=== PATIENT | female | born 1935 | race Caucasian/White ===

== ENCOUNTER → 2016-08-06 | Outpatient (CLI) | payer OTHER, MEDICARE | LOC: FIMAGING 10:03 | PROVIDERS: ATTEND Neurological Surgery | DX: M41.84 Other forms of scoliosis, thoracic region (principal); M41.86 Other forms of scoliosis, lumbar region; M48.02 Spinal stenosis, cervical region; E04.1 Nontoxic single thyroid nodule ==

== ENCOUNTER 2018-03-02 16:54 | Inpatient (IN) | payer OTHER, MEDICARE ==
--- NOTE | 2018-03-02 17:32 | EDPHY ---
H & P Stated Complaint: blood in stool Time Seen by Provider: 03/02/18 17:14 HPI/ROS: CHIEF COMPLAINT: "I have blood in my stool" HISTORY OF PRESENT ILLNESS: 82-year-old female prior history of GI bleed, no anticoagulant use, arrives via private vehicle with daughter complaining of bright red blood per rectum for the past 3 days. No abdominal pain. Seen earlier today at [facility] gastroenterology referred to the ER for evaluation. Patient prefers not to work with [facility] Gastroenterology prefers to work with GI of the [facility] where she has previously had evaluation. She denies: Abdominal pain, back pain, syncope, near syncope, lightheadedness Patient demonstrates to me photos of her bowel movement from this morning which show grossly bloody stool with clots. PRIMARY CARE PROVIDER: REVIEW OF SYSTEMS: 10 systems reviewed and negative with the exception of the elements mentioned in the history of present illness PAST MEDICAL & SURGICAL HISTORY: Previous GI bleed history SOCIAL HISTORY: Nonsmoker PHYSICAL EXAM (Prior to examination, patient consented to physical exam, hands were washed and my usual and customary physical exam procedures followed) 1) GENERAL: Well-developed, well-nourished, alert and oriented. Appears to be in no acute distress. 2) HEAD: Normocephalic, atraumatic 3) HEENT: Pupils equal, round, reactive to light bilaterally. Sclera anicteric. Nasopharynx, oropharynx, clear, no lesions. MoistDry mucous membranes. Ears bilaterally with normal tympanic membranes. 4) NECK: Full range of motion, no meningeal signs. 5) LUNGS: Clear auscultation bilaterally, no wheezes, no rhonchi, no retractions. 6) HEART: Regular rate and rhythm, no murmur, no heave, no gallop. 7) ABDOMEN: No guarding, no rebound, no focal tenderness, negative McBurney's, negative Hale's, negative Rovsing's, negative peritoneal sign, 8) MUSCULOSKELETAL: Moving all extremities, no focal areas of tenderness, no obvious trauma. No peripheral edema or discoloration. 9) BACK: No CVA tenderness, no midline vertebral tenderness, no fluctuance, no step-off, no obvious trauma, no visual or palpable abnormality. 10) SKIN: No rash, no petechiae. 11) RECTAL: Bright red blood on digital rectal examination DIFFERENTIAL DIAGNOSIS: In no particular including but limited to factitious GI bleed, upper GI bleed, lower GI bleed - Personal History Current Tetanus/Diphtheria Vaccine: Unsure Current Tetanus Diphtheria and Acellular Pertussis (TDAP): Unsure - Medical/Surgical History Hx Asthma: No Hx Chronic Respiratory Disease: No Hx Diabetes: No Hx Cardiac Disease: No Hx Renal Disease: No Hx Cirrhosis: No Hx Alcoholism: No Hx HIV/AIDS: No Hx Splenectomy or Spleen Trauma: No Other PMH: GI bleed, parathyroidectomy, colon resection - Social History Smoking Status: Never smoked Constitutional: Initial Vital Signs Temperature (C) 37 C 03/02/18 17:01 Heart Rate 79 03/02/18 17:01 Respiratory Rate 16 03/02/18 17:01 Blood Pressure 116/83 H 03/02/18 17:01 O2 Sat (%) 96 03/02/18 17:01 O2 Delivery Mode Room Air Allergies/Adverse Reactions: Sulfa (Sulfonamide Antibiotics) Allergy (Intermediate, Verified 03/02/18 17:01) Hives Home Medications: Medication Instructions Recorded LORazepam [Ativan] 0.5 mg PO HS 11/12/10 Medical Decision Making ED Course/Re-evaluation: The patient was re-evaluated with serial examinations in the case discussed with secondary supervising physician Dr. Angel Crowe in the E R. Patient was noted to have gross blood on rectal examination as well as in photos. It is unusual that the patient's stool occult blood study is negative. I have reviewed her old medical records and she has a prior admission for GI bleed without specific etiological source. I think that this is less than likely factitious GI bleeding. Does note that she ate beets a few days ago however I think that this is less than likely secondary to factitious GI bleed. I recommended admission. I consulted with Dr. Yousuf Dash who will admit patient. GI will be consulted. At this time will hold on imaging of abdomen as she has no subjective or objective abdominal complaints. 7:01 p.m.: Consultation Dr. Dave Gibbons will consult for GI - Data Points Laboratory Results: Laboratory Results 03/02/18 17:45 03/02/18 17:45 09/18/18 18 18 17:45 17:45 17:45 WBC 6.11 10^3/uL 10^3/uL (3.80-9.50) RBC 4.46 10^6/uL 10^6/uL (4.18-5.33) Hgb 12.8 g/dL g/dL (12.6-16.3) Hct 39.3 % % (38.0-47.0) MCV 88.1 fL fL (81.5-99.8) MCH 28.7 pg pg (27.9-34.1) MCHC 32.6 g/dL g/dL (32.4-36.7) RDW 14.3 % % (11.5-15.2) Plt Count 234 10^3/uL 10^3/uL (150-400) MPV 11.1 fL fL (8.7-11.7) Neut % (Auto) 62.6 % % (39.3-74.2) Lymph % (Auto) 28.0 % % (15.0-45.0) Cloud % (Auto) 8.7 % % (4.5-13.0) Eos % (Auto) 0.3 % L % (0.6-7.6) Baso % (Auto) 0.2 % L % (0.3-1.7) Nucleat RBC Rel Count 0.0 % % (0.0-0.2) Absolute Neuts (auto) 3.83 10^3/uL 10^3/uL (1.70-6.50) Absolute Lymphs (auto) 1.71 10^3/uL 10^3/uL (1.00-3.00) Absolute Monos (auto) 0.53 10^3/uL 10^3/uL (0.30-0.80) Absolute Eos (auto) 0.02 10^3/uL L 10^3/uL (0.03-0.40) Absolute Basos (auto) 0.01 10^3/uL L 10^3/uL (0.02-0.10) Absolute Nucleated RBC 0.00 10^3/uL 10^3/uL (0-0.01) Immature Gran % 0.2 % % (0.0-1.1) Immature Gran # 0.01 10^3/uL 10^3/uL (0.00-0.10) PT 13.4 SEC SEC (12.0-15.0) INR 1.00 (0.83-1.16) APTT 25.4 SEC SEC (23.0-38.0) Sodium 139 mEq/L mEq/L (135-145) Potassium 4.3 mEq/L mEq/L (3.3-5.0) Chloride 103 mEq/L mEq/L (97-110) Carbon Dioxide 27 mEq/l mEq/l (22-31) Anion Gap 9 mEq/L mEq/L (8-16) BUN 20 mg/dL mg/dL (7-23) Creatinine 0.7 mg/dL mg/dL (0.6-1.0) Estimated GFR > 60 Glucose 120 mg/dL H mg/dL (70-100) Calcium 9.6 mg/dL mg/dL (8.5-10.4) Stool Occult Bld Scrn 03/02/18 17:34 WBC RBC Hgb Hct MCV MCH MCHC RDW Plt Count MPV Neut % (Auto) Lymph % (Auto) Cloud % (Auto) Eos % (Auto) Baso % (Auto) Nucleat RBC Rel Count Absolute Neuts (auto) Absolute Lymphs (auto) Absolute Monos (auto) Absolute Eos (auto) Absolute Basos (auto) Absolute Nucleated RBC Immature Gran % Immature Gran # PT INR APTT Sodium Potassium Chloride Carbon Dioxide Anion Gap BUN Creatinine Estimated GFR Glucose Calcium Stool Occult Bld Scrn NEGATIVE (NEGATIVE) Medications Given: Sodium Chloride (Ns) 1,000 mls @ 100 mls/hr IV CONT SOUMYA Stop: 08/29/18 19:29 Last Admin: 03/02/18 20:38 Dose: 1,000 mls Pantoprazole Sodium (Protonix) 40 mg IVP Q12HRS SOUMYA Stop: 08/29/18 20:59 Last Admin: 03/02/18 20:33 Dose: 40 mg Discontinued Medications Polyethylene Glycol/Electrolytes (Gavilyte - G) 4,000 ml PO ONCE ONE Stop: 03/02/18 19:37 Last Admin: 03/02/18 20:33 Dose: 4,000 ml Departure - Departure Disposition: [facility] Inpatient Acute Clinical Impression: GI bleed Condition: Fair
[2018-03-02 17:58] LABS: PLATELET COUNT 234 10^3/uL (150-400)
[2018-03-02 18:04] LABS: PROTIME(PATIENT) 13.4 SEC (12.0-15.0)
[2018-03-02] MEDS ORDERED: ACETAMINOPHEN 325 MG TAB PO PRN (19:26)
[2018-03-02] MEDS ORDERED: ONDANSETRON DISINTEGRATING 4 MG TAB PO PRN (19:26)
[2018-03-02] MEDS ORDERED: ONDANSETRON 4 MG/2 ML VIAL IVP PRN (19:26)
[2018-03-02] MEDS ORDERED: NS 1,000 ML IV SCH (19:30)
[2018-03-02] MEDS ORDERED: LORazepam 0.5 MG TAB PO PRN (19:36)
[2018-03-02] MEDS ORDERED: PEG 3350/NA SULF,BICARB,CL/KCL (GAVILYTE-G) 4000 ML BTL PO ONE (19:36)
[2018-03-02] MEDS: PANTOPRAZOLE SODIUM 40 MG VIAL IVP SCH (20:33)
--- NOTE | 2018-03-02 20:34 | GHP ---
DATE OF ADMISSION: 03/02/2018 CHIEF COMPLAINT: Bright red blood per rectum. HISTORY OF PRESENT ILLNESS: This is an 82-year-old female, who presents with bright red blood per re ctum. This started about 2 days ago. She describes some brown stool, as well as some possible dark tarry stool. She has also had blood in the toilet. She has not had any hematemesis. She has no abd ominal pain. She has a history of a GI bleed for somewhat obscure reasons in the past. She tells me in the past she has had a diverticula which was clipped. 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 She had a tagged red blood cell study back in 2010 which was negative for any source. She follows up with of the [facility], her last colonoscopy was about 3 years ago where some polyps were removed. She has been told she does not need any additional screening colonoscopies by Dr. Hart. Bairon peoples is not taking any blood thinners. She is not taking any NSAIDs. She has no dizziness, lightheaded ness, chest pain, or shortness of breath. I have reviewed her colonoscopies from here. These were a ll done in 2010. As above, she had a small AVM in her jejunum, as well as a possible AVM versus blee ding diverticula in her colon. PAST MEDICAL/SURGICAL HISTORY: 1. GI bleeds, as above. 2. Osteoporosis. 3. Partial colectomy for a benign polyp. 4. Diverticulosis. MEDICATIONS: Please see medication reconciliation. ALLERGIES: Sulfa. FAMILY HISTORY: Reviewed and noncontributory. SOCIAL HISTORY: She occasionally drinks wine. She does not smoke. REVIEW OF SYSTEMS: A 10-point review of systems is conducted and is negative except per HPI. PHYSICAL EXAM: VITAL SIGNS: Blood pressure 116/83, heart rate 79, respiration rate 16, saturating 9 6% on room air. Temperature is 37. GENERAL: The patient is a pleasant female who is resting comfor tably, accompanied by her daughter. No acute distress. HEENT: Shows her to be normocephalic, atrau matic. CARDIOVASCULAR: Regular rate and rhythm. No murmurs, rubs, or gallops. PULMONARY: Lungs c lear to auscultation bilaterally. ABDOMEN: Soft, nontender, nondistended. SKIN: Shows no rash. G U: No Krishnan. NEUROLOGIC: Shows her to be alert and oriented x3. She is moving all extremities. P SYCHIATRIC: Exam shows normal mood and affect. LABORATORIES: Basic metabolic panel is normal. BUN is 20. Hemoglobin is 12.8, white count is 6.1. INR is 1.0. Her fecal occult blood is negative. DATA: 1. I reviewed her chart as above. 2. I discussed this with Kristin Urban. Will admit to med/surg. IMPRESSION AND PLAN: Suspected gastrointestinal bleed: Discussed with Dr. Gibbons. We will plan fo r an upper and lower endoscopy tomorrow. Will trend her hemoglobin. I have ordered a prep for a col onoscopy for tomorrow. She is hemodynamically stable and not anemic at this time. She does have a c omplicated history of GI bleeds in the past. She is followed by GI of the [facility]. /[id number]/MODL
[2018-03-03] MEDS: PANTOPRAZOLE SODIUM 40 MG VIAL IVP SCH ×2 (07:51→21:57)
[2018-03-03] MEDS ORDERED: LR 1,000 ML IV ONE (08:44)
--- NOTE | 2018-03-03 09:05 | PDANEPAE ---
ANE History of Present Illness EGD/colonoscopy ANE Past Medical History - Pulmonary History Hx Oxygen in Use at Home: No Hx Sleep Apnea: No Sleep Apnea Screening Result - Last Documented: Negative - Endocrine History Hx Diabetes: No - Chronic Pain History Chronic Pain: No ANE Review of Systems Review of Systems: - Exercise capacity Exercise capacity: >=4 METS ANE Patient History - Allergies Allergies/Adverse Reactions: Sulfa (Sulfonamide Antibiotics) Allergy (Intermediate, Verified 03/03/18 08:52) dizzy, nausea oxycodone [From OxyContin] Allergy (Verified 03/03/18 08:52) - Home Medications Home medications: home medication list seen and reviewed Home Medications: LORazepam [Ativan] 0.5 mg PO HS 11/12/10 [Last Taken 03/01/18] - NPO status NPO Status: no food or drink >8 hours NPO Since - Liquids (Date): 03/03/18 NPO Since - Liquids (Time): 02:00 (prep) NPO Since - Solids (Date): 03/03/18 NPO Since - Solids (Time): 00:00 - Anes Hx Anes Hx: no prior problems - Smoking Hx Smoking Status: Never smoked - Alcohol Use Alcohol Use: None - Family Anes Hx Family Anes Hx: none ANE Labs/Vital Signs - Labs Result Diagrams: 03/03/18 07:43 03/03/18 07:43 - Vital Signs Blood Pressure: 122/64 Heart Rate: 78 Respiratory Rate: 18 O2 Sat (%): 91 Height: 152.4 cm Weight: 45.5 kg ANE Physical Exam - Airway Neck exam: FROM Mallampati Score: Class 2 Mouth exam: normal dental/mouth exam - Pulmonary Pulmonary: no respiratory distress - Cardiovascular Cardiovascular: regular rate and rhythym - ASA Status ASA Status: II ANE Anesthesia Plan Anesthesia Plan: GA with mask Total IV Anesthesia: Yes
[2018-03-03] MEDS ORDERED: PROPOFOL/EMULSION 500 MG/50 ML BOTTLE IV ONE (09:17)
[2018-03-03] MEDS ORDERED: LIDOCAINE 2% 100 MG/5 ML SYR ONE (09:18)
[2018-03-03] MEDS ORDERED: ONDANSETRON 4 MG/2 ML VIAL IVP PRN (09:32)
[2018-03-03] MEDS ORDERED: PROMETHAZINE HCL 25 MG/ML INJ IVP PRN (09:32)
[2018-03-03] MEDS ORDERED: NALOXONE HCL 0.4 MG/ML INJ IVP PRN (09:32)
[2018-03-03] MEDS ORDERED: fentaNYL 100 MCG/2 ML INJ IVP PRN (09:32)
[2018-03-03] MEDS ORDERED: DEXAMETHASONE 4 MG/ML VIAL IVP PRN (09:32)
[2018-03-03] MEDS ORDERED: LR 500 ML IV PRN (09:32)
[2018-03-03] MEDS ORDERED: PHENYLEPHRINE HCL 100 MCG/ML SYR IVP PRN (09:32)
[2018-03-03] MEDS ORDERED: ACETAMINOPHEN 500 MG TAB PO PRN (09:32)
--- NOTE | 2018-03-03 09:59 | POSTANESTH ---
Post Anesthetic Evaluation Cardiovascular Status: Normal, Stable Respiratory Status: Normal, Stable Level of Consciousness/Mental Status: Can Participate in Eval Pain Control: Adequate, Prn Tx Ordered Nausea/Vomiting Control: Adequate, Prn Tx Ordered Complications Possibly Related to Anesthesia: None Noted
--- NOTE | 2018-03-03 10:16 | GCON ---
REFERRING PHYSICIAN: Bret Dash MD CHIEF COMPLAINT: 82-year-old woman with bright red blood per rectum. HISTORY OF PRESENT ILLNESS: I have been asked to see this very pleasant 82-year -old woman in consultation by Dr. Dash for evaluation of hematochezia. Patient has had a previous history of obscure GI bleeding without source identified. She had been well until about 2 days ago. She started passing some brown stool but episodes of dark tarry stool as well. Then she also had episodes of bright red blood per rectum. She had no nausea or vomiting or hematemesis. She denied any abdominal pain. As mentioned, she had a previous history of obscure GI bleeding in the past. She had history of diverticulosis and also had a history of AVM seen in the jejunum on previous study. Tag study in 2010, was negative for source of bleeding. Last colonoscopy was about 3 years ago. Polyps were removed at that time. She has been seen by Dr. Hart. She does not take nonsteroidals or blood thinners. She denied any lightheadedness or dizziness. She was hemodynamically stable in the emergency department. She presents now with GI bleeding. She was noted to have a drop in hematocrit to 29.9. Serum chemistries revealed serum sodium 142, potassium 4.1, BUN of 13 with a creatinine of 0.6. PT was 13.4 with INR of 1.0. PAST MEDICAL HISTORY: Remarkable for GI bleed as above, unclear source, questionable diverticular. History of osteoporosis, partial colectomy for benign polyp, diverticulosis. ALLERGIES: Sulfa. FAMILY HISTORY: Noncontributory to the patient's chief complaint. SOCIAL HISTORY: Drinks occasional wine. Nonsmoker. MEDICATIONS: Acetaminophen, lorazepam, Zofran, pantoprazole. REVIEW OF SYSTEMS: Negative 10 systems. PHYSICAL EXAM: VITAL SIGNS: 122/64. Heart rate is 78. Respiratory rate 18. 91% sat on room air. HEENT: Normocephalic, atraumatic. EOMI. NECK: Supple. No cervical adenopathy. No thyromegaly. LUNGS: Clear. CARDIAC: Normal S1 , S2 without murmur. ABDOMEN: Benign, soft, nontender. No hepatosplenomegaly. EXTREMITIES: Without clubbing, cyanosis, edema. NEURO: Nonfocal. SKIN: Warm, dry, and intact. PSYCH: Alert and oriented x3 with normal affect. LABS: As above. IMPRESSION: 82-year-old woman with gastrointestinal bleed, possible diverticular. Previous history of bleeding in the past of unclear etiology. RECOMMENDATIONS: 1. Admit to the hospital. IV fluids. 2. IV fluids. 3. Serial H and H. 4. Would initiate on IV Protonix 40 mg b.i.d. 5. Prep for urgent upper endoscopy and colonoscopy. Will follow with you. /[id number]/MODL MTDD
--- NOTE | 2018-03-03 11:30 | ASMTCASEMG ---
Living Arrangements What is your living Answers: Alone arrangement? Who do you live with? Type Of Residence What kind of residence do Answers: House you live in? Discharge Plan Comments Coordination Status Comments Notes: Patient is an 82yo female who presents with bright red blood from rectum for the past 2 days. Patient has been admitted for suspected gastrointestinal bleed. Patient to get an upper and lower endoscopy. Patient is followed by GI of the [facility] and does have a complicated hx of GI bleeds. PT has been ordered. Patient does have a daughter, Cathi who lives in [place]. D/C plan TBD. CM will follow. Date Signed: 03/03/2018 11:16 AM Electronically Signed By:Alycia Faria LCSW
--- NOTE | 2018-03-03 12:42 | HOSPPROG ---
Hospitalist Progress Note Assessment/Plan: GI Bleed - Having BRBPR, Melena at home, has a hx of GIB with AVM and multiple endoscopies, tagged RBC scan, capsule endoscopy, followed by GI of the [facility] - Hemoglobin 12.8 on admission, 9,8, then 11.5 this AM - GI Consulted on admission, performed EGD/Colonoscopy this AM, awaiting report - Was placed on IV PPI BID, will transition to PO PPI BID - Will continue to monitor H/H overnight Acute Blood Loss Anemia - Presenting with GIB - H/H 12.8 on admission - Management of GIB as above - Continue to monitor H/H, transfuse if <20 FEN: IVF PRN PPx: Holding given GIB Code: Full Dispo: Pending clinical course, likely d/c in the AM if H/H remains stable and no more bleeding Subjective: Patient reports no abdominal pain this morning Objective: Vital Signs Temp Pulse Resp BP Pulse Ox 36.6 C 73 16 109/62 91 L 03/03/18 11:33 03/03/18 11:33 03/03/18 11:33 03/03/18 11:33 03/03/18 11:33 Laboratory Results 03/03/18 07:43 03/03/18 07:43 03/02/18 03/03/18 03/04/18 05:59 05:59 05:59 Intake Total 600 830 Balance 600 830 PT 13.4 SEC (12.0-15.0) 03/02/18 17:45 INR 1.00 (0.83-1.16) 03/02/18 17:45 - Physical Exam Constitutional: no apparent distress Eyes: PERRL Ears, Nose, Mouth, Throat: moist mucous membranes Cardiovascular: regular rate and rhythym Respiratory: no respiratory distress, clear to auscultation Gastrointestinal: normoactive bowel sounds, soft, non-tender abdomen Genitourinary: no bladder tenderness Skin: warm Musculoskeletal: no muscle tenderness Neurologic: AAOx3 Psychiatric: interacting appropriately ICD10 Worksheet Patient Problems: Problems Problem Status Onset GI bleed Acute
--- NOTE | 2018-03-03 16:47 | PDMN ---
Medical Necessity Medical necessity: [facility] [id number] LGIB: 82 y/o w/ GIB, EGD and Colonoscopy completed, final dx pending, developed hypotension as low as 60s/30s, H&H did drop last night 9.8/29.9, stable today at 11.5/34.4, need to cont to monitor H&H and any further bleeding per rectum. Pt requires another MN for ongoing IV fluids and PPIs, monitoring and treatment. Hx GI bleeds, partial colectomy, diverticulitis and osteoporosis. Change to IP status per MD order 03/03/18 @1526
[2018-03-04 07:52] VITALS: BP 118/73
--- NOTE | 2018-03-04 11:06 | SOAPPROG ---
SOAP Progress Note Assessment/Plan: Assessment: Presumed diverticular bleed. No signs or symptoms of rebleeding. Poor appetite but tolerating PO. Plan: 1. Diet as tolerated 2. High fiber diet 3. If recurrent bleeding recommend RBC tagged study and IR consult 4. Ok for discharge today from GI point of view Please call with further questions 03/04/18 11:03 Subjective: CC: GI Bleed Doing well. No stools. No recurrent bleeding, no abdominal pain. tolerating PO, however has had not had appetite. Objective: Vital Signs Temp Pulse Resp BP Pulse Ox 36.6 C 75 16 118/73 93 03/04/18 07:52 03/04/18 07:52 03/04/18 07:52 03/04/18 07:52 03/04/18 07:52 Laboratory Results 03/04/18 07:45 03/03/18 03/04/18 03/05/18 05:59 05:59 05:59 Intake Total 1000 Balance 1000 PT 13.4 SEC (12.0-15.0) 03/02/18 17:45 INR 1.00 (0.83-1.16) 03/02/18 17:45 Generic Name Dose Route Start Last Admin Trade Name Freq PRN Reason Stop Dose Admin Acetaminophen 650 mg 03/02/18 19:26 Tylenol PO 08/29/18 19:25 Q4HRS PRN Pain, Mild/Fever, Can Take PO Sodium Chloride 1,000 mls @ 100 mls/hr 03/02/18 19:30 03/02/18 20:38 Ns IV 08/29/18 19:29 1,000 mls CONT SOUMYA Administration Lorazepam 0.5 mg 03/02/18 19:36 03/03/18 22:33 Ativan PO 08/29/18 19:35 0.5 mg HS PRN Administration Sleep/Insomnia Ondansetron HCl 4 mg 03/02/18 19:26 Zofran IVP 08/29/18 19:25 Q4HRS PRN Nausea/Vomiting, Can't Take PO Ondansetron HCl 4 mg 03/02/18 19:26 Zofran Odt PO 08/29/18 19:25 Q4HRS PRN Nausea/Vomiting, Use 1st Discontinued Medications Generic Name Dose Route Start Last Admin Trade Name Freq PRN Reason Stop Dose Admin Acetaminophen 500 mg 03/03/18 09:32 Tylenol PO 03/03/18 10:33 Q6HRS PRN PACU, Pain Mild Dexamethasone 4 mg 03/03/18 09:32 Decadron Injection IVP 03/03/18 10:33 ONCE PRN PACU, Nausea/Vomiting Fentanyl 25 - 100 mcg 03/03/18 09:32 Sublimaze IVP 03/03/18 10:32 Q5M PRN PACU, IMMEDIATE Pain control Lactated Ringer's 1,000 mls @ 0 mls/hr 03/03/18 08:44 03/03/18 11:21 Lr IV 03/03/18 08:45 Not Given ONCE ONE KVO Lactated Ringer's 500 mls @ 0 mls/hr 03/03/18 09:32 Lr IV 03/03/18 10:33 PRN PRN PACU, Nausea/Vomiting Post-Op Wide Open Lidocaine HCl Confirm 03/03/18 09:18 Lidocaine Hcl 2% Administered 03/03/18 09:19 Dose 100 mg .ROUTE .STK-MED ONE Naloxone HCl 0.1 mg 03/03/18 09:32 Narcan IVP 03/03/18 10:32 Q2M PRN PACU Resp Rate <10/min Ondansetron HCl 2 - 4 mg 03/03/18 09:32 Zofran IVP 03/03/18 10:33 Q10M PRN PACU, Nausea/Vomiting Pantoprazole Sodium 40 mg 03/02/18 21:00 03/03/18 21:57 Protonix IVP 08/29/18 20:59 40 mg Q12HRS SOUMYA Administration Phenylephrine HCl 100 mcg 03/03/18 09:32 Neosynephrine IVP 03/03/18 10:33 .Q2M PRN PACU, Hypotension Polyethylene Glycol/Electrolytes 4,000 ml 03/02/18 19:36 03/02/18 20:33 Gavilyte - G PO 03/02/18 19:37 4,000 ml ONCE ONE Administration Promethazine HCl 6.25 - 12.5 mg 03/03/18 09:32 Phenergan IVP 03/03/18 10:33 Q5M PRN PACUNausea/Vomiting, Unable PO Propofol Confirm 03/03/18 09:17 Diprivan 10 Mg/Ml (Premix) Administered 03/03/18 09:18 Dose 500 mg IV .STK-MED ONE Physical Exam - Physical Exam General Appearance: alert, no apparent distress Respiratory: lungs clear, normal breath sounds Cardiac/Chest: regular rate, rhythm Abdomen: normal bowel sounds, non-tender, soft Skin: normal color, warm/dry Neuro/Psych: no motor/sensory deficits, alert, normal mood/affect ICD10 Worksheet Patient Problems: Problems Problem Status Onset GI bleed Acute
--- NOTE | 2018-03-04 11:21 | PDDCSUM ---
Discharge Summary Discharge Summary: Date of Admission: 03/03/2018 Date of Discharge: 03/04/2018 Consults: GI Procedures: EGD, Colonoscopy Followup: PCP Hospital Course Problem List: GI Bleed - Having BRBPR, Melena at home, has a hx of GIB with AVM and multiple endoscopies, tagged RBC scan, capsule endoscopy, followed by GI of the [facility] - Hemoglobin 12.8 on admission, then 11.5 yesterday, stable at 11.9 this AM - GI Consulted on admission, performed EGD/Colonoscopy on 03/03 which showed old blood, likely diverticular bleed - Was placed on IV PPI BID on admission , d/c due to negative EGD Acute Blood Loss Anemia - Presenting with GIB - H/H 12.8 on admission - Management of GIB as above - Continue to monitor H/H, transfuse if <20 Time spent on discharge was >35 minutes with >50% of time spent on patient education and counseling
== END 2018-03-04 11:36 | disposition home or self-care (01) | DRG 378 ==
LOC: F3E 19:55 → OBSVTOIN 03-03 15:26
PROVIDERS: ADMIT Student in an Organized Health Care Education/Training Program; ATTEND Student in an Organized Health Care Education/Training Program
PROC: 0DJD8ZZ Inspection of Lower Intestinal Tract, Via Natural or Artificial Opening Endoscopic (ICD-10-PCS; principal; 2018-03-03 09:00)
PROC: 0DJ08ZZ Inspection of Upper Intestinal Tract, Via Natural or Artificial Opening Endoscopic (ICD-10-PCS; principal; 2018-03-03 09:00)
DX: K57.33 Diverticulitis of large intestine without perforation or abscess with bleeding (principal); D62 Acute posthemorrhagic anemia; M10.9 Gout, unspecified
CPT/HCPCS: 97161-GP; G0378; G8978-GP-CI; G8979-GP-CI; G8980-GP-CI; J2001; J2704